=== PATIENT | male | born 1975 | race Hispanic/Latino ===

== ENCOUNTER → 2024-04-15 11:48 | Outpatient (REF) | payer OTHER, SELFPAY ==
[2024-04-15 14:34] LABS: Glycohemoglobin (HgbA1c) 6.6 % (4.0-5.6)
== END ==
LOC: CLINIC 11:48
PROVIDERS: ATTENDING PHYSICIAN Internal Medicine
DX: E11.9 Type 2 diabetes mellitus without complications (principal)
CPT/HCPCS: 36415; 83036

== ENCOUNTER → 2024-04-23 15:42 | Outpatient (REF) | payer OTHER, SELFPAY ==
[2024-04-23 16:35] LABS: HDL Cholesterol 39 mg/dl; LDL Cholesterol, Calculated 152 mg/dl; Total Cholesterol 233 mg/dl (50-199); Triglyceride 214 mg/dl (10-149); Very Low Density Lipoprotein 42 mg/dl (0-30)
== END ==
LOC: CLINIC 15:42
PROVIDERS: ATTENDING PHYSICIAN Internal Medicine
DX: E78.00 Pure hypercholesterolemia, unspecified (principal)
CPT/HCPCS: 36415; 80061

== ENCOUNTER → 2024-08-25 12:20 | Outpatient (REF) | payer OTHER, SELFPAY ==
[2024-08-25 14:14] LABS: Glycohemoglobin (HgbA1c) 6.3 % (4.0-5.6)
== END ==
LOC: CLINIC 12:20
PROVIDERS: ATTENDING PHYSICIAN Internal Medicine
DX: E11.9 Type 2 diabetes mellitus without complications (principal)
CPT/HCPCS: 36415; 83036

== ENCOUNTER → 2025-02-12 08:05 | Outpatient (REF) | payer OTHER, SELFPAY ==
[2025-02-12 09:49] LABS: ALT (SGPT) 36 U/L (0-50); AST (SGOT) 26 U/L (17-59); Alkaline Phosphatase 135 U/L (38-126); Blood Urea Nitrogen 17 mg/dl (9-20); Calcium 9.8 mg/dl (8.4-10.2); Carbon Dioxide 28 mmol/L (22-30); Chloride 100 mmol/L (98-107); Glucose 175 mg/dl (70-99); HDL Cholesterol 31 mg/dl; LDL Cholesterol, Calculated 179 mg/dl; Potassium 4.4 mmol/L (3.5-5.1); Sodium 139 mmol/L (135-145); Total Bilirubin 0.8 mg/dl (0.2-1.3); Total Cholesterol 264 mg/dl (50-199); Total Protein 7.7 g/dl (6.3-8.2); Triglyceride 274 mg/dl (10-149); Very Low Density Lipoprotein 54 mg/dl (0-30); eGFR > 60.00
[2025-02-12 10:23] LABS: Glycohemoglobin (HgbA1c) 7.4 % (4.0-5.6)
== END ==
LOC: CLINIC 08:05
PROVIDERS: ATTENDING PHYSICIAN Internal Medicine
DX: E11.9 Type 2 diabetes mellitus without complications (principal); E78.00 Pure hypercholesterolemia, unspecified
CPT/HCPCS: 36415; 80053; 80061; 83036

== ENCOUNTER → 2025-05-18 07:30 | Outpatient (REF) | payer OTHER, SELFPAY ==
[2025-05-18 09:10] LABS: HDL Cholesterol 34 mg/dl; LDL Cholesterol, Calculated 161 mg/dl; Total Cholesterol 238 mg/dl (50-199); Triglyceride 217 mg/dl (10-149); Very Low Density Lipoprotein 43 mg/dl (0-30)
[2025-05-18 10:27] LABS: Glycohemoglobin (HgbA1c) 6.7 % (4.0-5.6)
== END ==
LOC: REG 07:30
PROVIDERS: ATTENDING PHYSICIAN Internal Medicine
DX: E11.9 Type 2 diabetes mellitus without complications (principal)
CPT/HCPCS: 36415; 80061; 83036

== ENCOUNTER → 2025-10-05 11:48 | Outpatient (REF) | payer OTHER, SELFPAY ==
[2025-10-05 13:55] LABS: Glycohemoglobin (HgbA1c) 7.5 % (4.0-5.9); HDL Cholesterol 32 mg/dl; LDL Cholesterol, Calculated 169 mg/dl; Very Low Density Lipoprotein 46 mg/dl (0-30)
== END ==
LOC: REG 11:48
PROVIDERS: ATTENDING PHYSICIAN Internal Medicine
DX: E11.9 Type 2 diabetes mellitus without complications (principal)
CPT/HCPCS: 36415; 80061; 83036